=== PATIENT | female | born 1965 | race Caucasian/White ===

== ENCOUNTER 2019-01-06 07:47 | Day surgery (SDC) | payer BC ==
[~2019-01-06] VITALS: Ht 162.6 cm; Wt 114.3 kg
[~2019-01-06 07:47] MED LIST: ALLERGY-TIME4 MG PO; BASAGLAR K100 UNIT/1; GLUCOPHAGE500 MG; LEVOTHYROXINE112 MCG; LIPITOR40 MG PO; METOPROLOL SUC100 MG PO; NAPROSYN500 MG PO; PANTOPRAZOLE SO40 MG PO; PROZAC20 MG PO; SINGULAIR10 MG PO; VALSARTAN-HCTZ1 EAC3 PO; VITAMIN D250000 UNIT PO
[2019-01-06] MEDS ORDERED: MAGNESIUM30 MG PO (08:09)
[2019-01-06] MEDS ORDERED: VITAMIN C100 MG PO (08:09)
[2019-01-06] MEDS ORDERED: IRON18 MG PO (08:10)
--- NOTE | 2019-01-06 09:45 | NUR ---
01/06/19 0945 Erika Hall 0939 PT TO PACU DROWSY BUT AROUSABLE DENIES PAIN OR NAUSEA.
--- NOTE | 2019-01-06 17:32 | OR ---
[facility] [address] [place], [place] [address] Signed DATE OF OPERATION: 01/06/2019 SURGEON: Jeancarlos Calix MD PREOPERATIVE DIAGNOSES: 1. Gastroesophageal reflux disease. 2. Vomiting. 3. Esophageal dysphagia and odynophagia. 4. Iron deficiency anemia. 5. Irritable bowel syndrome with diarrhea. 6. Screening. POSTOPERATIVE DIAGNOSES: 1. Moderate punctate hemorrhagic gastroduodenitis with multiple shallow ulcerations. 2. Nfxer-op-lakgpcor sized hiatal hernia. 3. Distal and mid esophagitis. 4. Unremarkable colonoscopy. PROCEDURES PERFORMED: 1. EGD with CLOtest and biopsies of the duodenum, pyloric bulb, antrum and GE junction. 2. Colonoscopy with random cold biopsies. ESTIMATED BLOOD LOSS: None. 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 She has had acid reflux for many years. She had upper endoscopy while back in [place]. She cannot remember the details. She has been on Protonix and still having breakthrough symptoms. She has also gained some weight and she feels like that made has made it worse. Once a while she has to throw up her food. She has to sit up after she eats or makes it worse. Her symptoms are getting progressively worse. She talks about pain when she swallows as well. She also went to see a sleep specialist over in the [facility] and found out that she has iron deficiency anemia. About three weeks now, she has been taking her iron pills. We tried to track down the laboratory work without success. We did find her hemoglobin A1c is high at 10.6. She also talked about irritable bowel syndrome her whole life. She mentioned there is no family history of colon cancer or polyps. She has never had a previous screening colonoscopy. Consequently, she was asked to see me for both upper and lower endoscopy. In the office, I gave Mya and her significant other pamphlets on upper and lower endoscopy. Electronically Signed By: JEANCARLOS CALIX MD 01/06/19 1732 PATIENT NAME: CELINE PEÑA OPERATIVE REPORT DATE OF : 69 REPORT #: [id number] PHYSICIAN: JEANCARLOS CALIX MD PCP: LUZ MARINA LANIER PA-C REPORT IS CONFIDENTIAL AND NOT TO BE RELEASED WITHOUT AUTHORIZATION [address] [address] Signed We reviewed those together in detail. They understand the nature of the 2 tests along with the risks including, but not limited to gas, bloating, crampy abdominal pain, bleeding, perforation, requiring surgery, and missed diagnosis. She also understands the need for IV conscious sedation. She had expressed understanding and wished to proceed. DESCRIPTION OF PROCEDURE: Celine was taken into our endoscopy suite and placed in the supine semi-recumbent position. She was given a total of 8 mg of Versed and 150 mcg of fentanyl to cover both cases. The posterior oropharynx was anesthetized with Hurricaine spray. A bite block was utilized for the upper endoscopy. Her blood pressure was running high and apparently, she told the nurse that she ran out of her blood pressure medication. Her blood sugar this morning was 287. The adult gastroscope was introduced and advanced under direct visualization of camera into the third portion of the duodenum. We took a biopsy at the distal duodenum for history of diarrhea. The pyloric channel and the stomach showed moderate punctate hemorrhagic inflammatory changes. No ulcerations in the pyloric bulb. We took a biopsy of the pyloric bulb for pathologic review. The stomach showed some very shallow ulcerations associated with that gastritis. We took biopsies of the antrum for CLOtest as well as pathologic review. Upon retroflexion of scope, she does have a ehaqu-tt-yspppwwg sized hiatal hernia. She had been coughing and moving quite a bit during the whole procedure, so we could not measure out her hiatal hernia any significant accuracy. She does have moderate disruption into the Z-line. Also, some shallow ulcerations in that area. We went and took biopsies from the GE junction. We saw some mild inflammatory changes in the midesophagus as well. She continued to awaken and move about, and we did not take biopsies, therefore, in the mid esophagus or the upper esophagus. However, the upper esophagus looked unremarkable. Her vocal cords and arytenoids all looked unremarkable. After this, the gas had been suctioned out and gastroscope removed. Celine was rotated into the left lateral decubitus position. She was maintained on IV sedation with Versed and fentanyl. A digital rectal exam was performed and this was unremarkable. The adult colonoscope was introduced all around into the cecum under direct visualization of the camera. We did use some abdominal compression in order to get the scope to advance. Her prep was good. The scope was slowly withdrawn. We took pictures throughout for photodocumentation. No evidence of any inflammatory changes, polyps, or diverticulosis throughout the entire colon or rectum. We took some biopsies in the sigmoid colon for pathologic review due to the history of diarrhea. Upon retroflexion of the scope, there was no additional pathology noted above the anal canal. After this, the gas was suctioned out. The colonoscope removed. Mya tolerated procedure quite well. RECOMMENDATIONS: Electronically Signed By: JEANCARLOS CALIX MD 01/06/19 1732 PATIENT NAME: CELINE PEÑA OPERATIVE REPORT DATE OF : 69 REPORT #: [id number] PHYSICIAN: JEANCARLOS CALIX MD PCP: LUZ MARINA LANIER PA-C REPORT IS CONFIDENTIAL AND NOT TO BE RELEASED WITHOUT AUTHORIZATION [facility] [address] [place], [place] [address], [place] [address] Signed I will see Mya back in my office in 7 to 14 days to review her results. We will try to get her laboratory work from her sleep study physician over in the [facility]. MD RAMYA Rahman/ALEXSANDRA /[id number] cc: MD Luz Marina Rahman PA-C Copies: JEANCARLOS CALIX MD, CHLOE K PA-C ~ Electronically Signed By: JEANCARLOS CALIX MD 01/06/19 1732 PATIENT NAME: CELINE PEÑA OPERATIVE REPORT DATE OF : 69 REPORT #: [id number] PHYSICIAN: JEANCARLOS CALIX MD PCP: LUZ MARINA LANIER PA-C REPORT IS CONFIDENTIAL AND NOT TO BE RELEASED WITHOUT AUTHORIZATION
== END 2019-01-06 10:32 | disposition home or self-care (01) ==
LOC: OPS 07:47 → DS 09:45 → OPS 09:45
PROVIDERS: Colon & Rectal Surgery
PROC: 0DB48ZX Excision of Esophagogastric Junction, Via Natural or Artificial Opening Endoscopic, Diagnostic (ICD-10-PCS; 2019-01-06)
PROC: 0DBE8ZX Excision of Large Intestine, Via Natural or Artificial Opening Endoscopic, Diagnostic (ICD-10-PCS; 2019-01-06)
PROC: 0DB98ZX Excision of Duodenum, Via Natural or Artificial Opening Endoscopic, Diagnostic (ICD-10-PCS; principal; 2019-01-06 09:00)
PROC: 0DB78ZX Excision of Stomach, Pylorus, Via Natural or Artificial Opening Endoscopic, Diagnostic (ICD-10-PCS; 2019-01-06 09:00)
DX: K29.51 Unspecified chronic gastritis with bleeding (principal); K29.80 Duodenitis without bleeding; K44.9 Diaphragmatic hernia without obstruction or gangrene; D50.9 Iron deficiency anemia, unspecified; K58.0 Irritable bowel syndrome with diarrhea; K21.0 Gastro-esophageal reflux disease with esophagitis; I10 Essential (primary) hypertension; K21.9 Gastro-esophageal reflux disease without esophagitis; E66.9 Obesity, unspecified; F32.9 Major depressive disorder, single episode, unspecified; E03.9 Hypothyroidism, unspecified; E78.5 Hyperlipidemia, unspecified; Z79.899 Other long term (current) drug therapy; Z79.4 Long term (current) use of insulin; Z79.1 Long term (current) use of non-steroidal anti-inflammatories (NSAID); Z68.41 Body mass index [BMI] 40.0-44.9, adult
CPT/HCPCS: 86677; 99153; G0500; J2250; J3010; J7120

== ENCOUNTER 2021-06-06 10:24 | Emergency (ER) | payer BC ==
[~2021-06-06] VITALS: Ht 165.1 cm; Wt 103.0 kg
[~2021-06-06 10:24] MED LIST changes: +IRON18 MG PO; +MAGNESIUM30 MG PO; +VITAMIN C100 MG PO
[2021-06-06] MEDS ORDERED: ONDANSETRON ODT4 MG PO (14:10)
== END 2021-06-06 16:02 | disposition home or self-care (01) ==
LOC: ED 10:24
DX: R11.2 Nausea with vomiting, unspecified (principal); R19.7 Diarrhea, unspecified; R10.13 Epigastric pain; E11.9 Type 2 diabetes mellitus without complications; Z91.013 Allergy to seafood; Z88.8 Allergy status to other drugs, medicaments and biological substances; Z79.899 Other long term (current) drug therapy; Z79.84 Long term (current) use of oral hypoglycemic drugs
CPT/HCPCS: 74177; 80053; 81001; 83690; 83735; 85025; 99284-25; J2405; J7030; Q9967

== ENCOUNTER 2021-12-17 23:50 | Emergency (ER) | payer BC ==
[~2021-12-17] VITALS: Ht 165.1 cm; Wt 108.0 kg
--- NOTE | ~2021-12-17 | EKG ---
[facility] [address] [facility] [place], [place] [address] Draft EK completed, results pending confirmation PATIENT NAME: VINAY PEÑA NGHIA Electrocardiogram DATE OF : 69 PHYSICIAN: PRELIMINARY REPORT #: [id number] REPORT IS CONFIDENTIAL AND NOT TO BE RELEASED WITHOUT AUTHORIZATION
[~2021-12-17 23:50] MED LIST changes: +ONDANSETRON ODT4 MG PO
[2021-12-18] MEDS ORDERED: LANTUS100 UNITS/ SUB-Q (00:14)
[2021-12-18] MEDS ORDERED: LORAZEPAM0.5 MG PO (00:14)
[2021-12-18] MEDS ORDERED: DESVENLAFAXINE50 M3 PO (00:15)
[2021-12-18] MEDS ORDERED: BENZONATATE100 MG PO (03:05)
[2021-12-18] MEDS ORDERED: PROAIR HFA8.5 GM INH (03:05)
== END 2021-12-18 03:27 | disposition home or self-care (01) ==
LOC: ED 23:50
DX: R05.9 Cough, unspecified (principal); U09.9 Post COVID-19 condition, unspecified; E11.9 Type 2 diabetes mellitus without complications; I10 Essential (primary) hypertension; Z88.8 Allergy status to other drugs, medicaments and biological substances; Z91.013 Allergy to seafood; Z79.899 Other long term (current) drug therapy; Z79.4 Long term (current) use of insulin
CPT/HCPCS: 36415; 71045; 71260; 80053; 83735; 84484; 85025; 85379; 85610; 93005; 93010; 99285-25; J7030; Q9967

== ENCOUNTER 2022-03-15 17:14 | Emergency (ER) | payer BC ==
[~2022-03-15] VITALS: Ht 165.1 cm; Wt 112.5 kg
[~2022-03-15 17:14] MED LIST changes: +BENZONATATE100 MG PO; +DESVENLAFAXINE50 M3 PO; +LANTUS100 UNITS/ SUB-Q; +LORAZEPAM0.5 MG PO; +PROAIR HFA8.5 GM INH
[2022-03-15] MEDS ORDERED: ONDANSETRON ODT8 MG PO (21:55)
== END 2022-03-15 22:10 | disposition home or self-care (01) ==
LOC: ED 17:14
DX: S09.90XA Unspecified injury of head, initial encounter (principal); E11.9 Type 2 diabetes mellitus without complications; I10 Essential (primary) hypertension; E78.00 Pure hypercholesterolemia, unspecified; Z91.013 Allergy to seafood; Z88.8 Allergy status to other drugs, medicaments and biological substances; Z79.4 Long term (current) use of insulin; Z79.899 Other long term (current) drug therapy; W22.8XXA Striking against or struck by other objects, initial encounter
CPT/HCPCS: 70450; 99283-25